=== PATIENT | female | born 1965 | race African-American/Black ===

== ENCOUNTER 2017-05-15 09:45 | Emergency (ER) | payer OTHER ==
[2017-05-15 10:48] LABS: ALBUMIN 3.4 g/dL (3.4-5.0); ANION GAP 12.3 mmol/L (8-16); BILIRUBIN - TOTAL 0.6 mg/dL (0.2-1.3); CALCIUM 9.1 mg/dL (8.5-10.1); CARBON DIOXIDE 26.4 mmol/L (21.0-32.0); POTASSIUM - SERUM 3.7 mmol/L (3.5-5.1); PROTEIN - SERUM 8.1 g/dL (6.4-8.2)
[2017-05-15 10:54] LABS: APPEARANCE TURBID (CLEAR); BACTERIA MANY /hpf (NONE SEEN); BILIRUBIN NEGATIVE (NEGATIVE); COLOR YELLOW (YELLOW); GLUCOSE NEGATIVE (NEGATIVE); KETONE MODERATE mg/dL (NEGATIVE); MUCUS <1+ /lpf (NONE SEEN); NITRITE NEGATIVE (NEGATIVE); PROTEIN TRACE mg/dL (NEGATIVE); RED CELLS - URINE 0-5 /hpf (0-5); SPECIFIC GRAVITY 1.025 (1.005-1.020); UROBILINOGEN NORMAL (NORMAL)
[2017-05-15 11:00] LABS: HEMATOCRIT 44.7 % (36.0-48.0); HEMOGLOBIN 14.2 g/dL (12-16); MCH 27.5 pg (26.0-34.0); MCHC 31.8 g/dL (31.0-37.0); MCV 86.6 fL (80.0-100.0); MEAN PLATELET VOLUME 10.5 fL (7.4-10.4); PLATELET COUNT 228 10x3/uL (130-400); RBC 5.16 10x6/uL (4.00-5.40); RDW 12.9 % (11.5-14.5); WBC 2.3 10x3/uL (4.8-10.8)
[2017-05-15 11:31] LABS: LYMPHOCYTES 32 % (15-50); MONOCYTES 14 % (2-11); NEUTROPHILS 47 % (40-80); PLATELET ESTIMATE NORMAL
== END 2017-05-15 12:17 | disposition home or self-care (01) ==
LOC: D.ER 09:45
PROVIDERS: Emergency Medicine
DX: N39.0 Urinary tract infection, site not specified (principal); R10.9 Unspecified abdominal pain

== ENCOUNTER 2017-07-03 21:58 | Emergency (ER) | payer OTHER | END 2017-07-03 22:58 | disposition home or self-care (01) | LOC: D.ER 21:58 | DX: J11.1 Influenza due to unidentified influenza virus with other respiratory manifestations (principal) ==

== ENCOUNTER 2018-01-12 10:21 | Emergency (ER) | payer OTHER ==
[~2018-01-12] VITALS: Ht 154.9 cm; Wt 80.9 kg
[2018-01-12 10:31] VITALS: Ht 154.9 cm; Wt 80.9 kg
[2018-01-12 11:21] LABS: APPEARANCE CLEAR (CLEAR); COLOR YELLOW (YELLOW)
[2018-01-12 11:22] LABS: BACTERIA MODERATE /hpf (NONE SEEN); BILIRUBIN NEGATIVE (NEGATIVE); EPITHELIAL CELLS 0-5 /hpf (0-5); GLUCOSE NEGATIVE (NEGATIVE); KETONE NEGATIVE (NEGATIVE); MUCUS <1+ /lpf (NONE SEEN); NITRITE NEGATIVE (NEGATIVE); PROTEIN NEGATIVE (NEGATIVE); SPECIFIC GRAVITY 1.015 (1.005-1.020); UROBILINOGEN NORMAL (NORMAL); WHITE CELLS - URINE RARE /hpf (0-5)
[2018-01-12] MEDS ORDERED: FLAGYL500 MG PO (11:28)
[2018-01-12] MEDS ORDERED: MACROBID100 MG PO (11:28)
[2018-01-12 11:56] VITALS: BP 138/72
== END 2018-01-12 11:56 | disposition home or self-care (01) ==
LOC: D.ER 10:21
PROVIDERS: Family Medicine
DX: N39.0 Urinary tract infection, site not specified (principal); N76.0 Acute vaginitis; B96.89 Other specified bacterial agents as the cause of diseases classified elsewhere

== ENCOUNTER 2018-01-24 20:50 | Emergency (ER) | payer OTHER ==
[~2018-01-24] VITALS: Ht 154.9 cm; Wt 80.9 kg
[~2018-01-24 20:50] MED LIST: FLAGYL500 MG PO; MACROBID100 MG PO
[2018-01-24 21:12] VITALS: Ht 154.9 cm; Wt 80.9 kg
[2018-01-24 22:41] LABS: APPEARANCE CLEAR (CLEAR); COLOR YELLOW (YELLOW); SPECIFIC GRAVITY 1.015 (1.005-1.020)
[2018-01-24 22:42] LABS: BACTERIA FEW /hpf (NONE SEEN); BILIRUBIN NEGATIVE (NEGATIVE); EPITHELIAL CELLS 0-5 /hpf (0-5); GLUCOSE NEGATIVE (NEGATIVE); KETONE NEGATIVE (NEGATIVE); NITRITE NEGATIVE (NEGATIVE); PROTEIN NEGATIVE (NEGATIVE); RED CELLS - URINE 0-5 /hpf (0-5); UROBILINOGEN NORMAL (NORMAL)
[2018-01-25] MEDS ORDERED: NEURONTIN 300300 MG PO (12:59)
[2018-01-25] MEDS ORDERED: TORADOL10 MG PO (12:59)
== END 2018-01-24 23:52 | disposition left against medical advice (07) ==
LOC: D.ER 20:50
PROVIDERS: Family Medicine
DX: M54.9 Dorsalgia, unspecified (principal)

== ENCOUNTER 2018-01-25 10:35 | Emergency (ER) | payer OTHER ==
[~2018-01-25] VITALS: Ht 154.9 cm; Wt 80.9 kg
[2018-01-25 10:48] VITALS: Ht 154.9 cm; Wt 80.9 kg
[2018-01-25] MEDS ORDERED: TORADOL10 MG PO (12:59)
[2018-01-25] MEDS ORDERED: NEURONTIN 300300 MG PO (12:59)
[2018-01-25 13:25] VITALS: BP 130/71
== END 2018-01-25 18:35 | disposition home or self-care (01) ==
LOC: D.ER 10:35
DX: M54.16 Radiculopathy, lumbar region (principal)